=== PATIENT | male | born 1970 | race African-American/Black ===

== ENCOUNTER 2023-07-23 06:58 | Inpatient (IN) | payer MEDICAID ==
[~2023-07-23] VITALS: Ht 182.9 cm; Wt 145.3 kg
[2023-07-23] MEDS ORDERED: SODIUM CHLORIDE 0.9% 1,000 ML IV ONE (07:15)
[2023-07-23] MEDS ORDERED: ONDANSETRON HCL 4 MG/2 ML VIAL IV ONE (07:15)
[2023-07-23] MEDS ORDERED: cloNIDine HCL 0.1 MG TAB PO ONE (07:30)
[2023-07-23 07:41] LABS: Basophils # (auto) 0.1 10 ^3/uL (0-0.2); Basophils % (auto) 0.7 % (0.0-2.0); Eosinophils # (auto) 0.1 10 ^3/uL (0-0.8); Eosinophils % (auto) 0.6 % (0.0-7.0); Hematocrit 39.7 % (41.0-53.0); Hemoglobin 13.8 g/dL (13.5-17.5); Lymphocytes # (auto) 1.5 10 ^3/uL (0.4-5.4); Lymphocytes % (auto) 15.8 % (10.0-50.0); Mean Corpuscular Hemoglobin 32.6 pg (28.0-32.0); Mean Corpuscular Hgb Conc. 34.8 g/dL (32.0-36.0); Mean Corpuscular Volume 93.9 fL (80.0-100.0); Monocytes # (auto) 0.3 10 ^3/uL (0-1.3); Monocytes % (auto) 2.9 % (0.0-12.0); Neutrophils # (auto) 7.9 10 ^3/uL (1.6-8.6); Red Blood Cells 4.23 10^6/uL (4.5-5.90); Red Cell Distribution Width 15.9 % (11.8-14.3); White Blood Cell 9.8 10^3/uL (4.4-10.8)
[2023-07-23] MEDS ORDERED: MORPHINE SULFATE 4 MG/ML SYR/VIAL IV ONE (08:00)
[2023-07-23 08:29] LABS: Urine Bacteria NONE SEEN /hpf (None Seen); Urine Blood TRACE /uL (Negative); Urine Clarity Clear (Clear); Urine Color Yellow (Yellow); Urine Mucus FEW (None Seen); Urine Protein, UAD TRACE (Negative); Urine Specific Gravity 1.018 (1.001-1.035); Urine Urobilinogen Normal (Negative); Urine WBC 7 /hpf (0 - 3)
[2023-07-23 08:39] LABS: Amphetamine Screen, Urine Neg (NEGATIVE); Barbiturate Scree,Urine Neg (NEGATIVE); Benzodiazephine Screen, Urine Neg (NEGATIVE); Cannabinoid Screen, Urine Pos (NEGATIVE); Cocaine Screen, Urine Neg (NEGATIVE); Opiate Scree,Urine Neg (NEGATIVE); Phencyclidine Screen, Urine Neg (NEGATIVE)
[2023-07-23] MEDS ORDERED: LORazepam 2MG/ML-1ML VIAL IV ONE (09:00)
[2023-07-23 09:13] LABS: Chloride 105 mmol/L (98-107); Sodium 136 mmol/L (136-145)
[2023-07-23 09:16] LABS: Anion Gap 9.3 (5-15); Calcium 9.3 mg/dL (8.5-10.1); Carbon Dioxide 21.7 mmol/L (20-30)
[2023-07-23 09:21] LABS: Alkaline Phosphatase 47 U/L (46-116); Glucose 147 mg/dL (74-106)
[2023-07-23 09:23] LABS: Aspartate Aminotransferase 19 U/L (13-40); Bilirubin, Total 0.6 mg/dL (0.2-1.0); Total Protein 7.9 g/dL (5.7-8.2)
[2023-07-23 09:55] LABS: Alanine Aminotransferase 34 U/L (7-40); Albumin 4.6 g/dL (3.2-4.8); Lipase 33 U/L (12-53)
[2023-07-23 10:04] LABS: Potassium 3.6 mmol/L (3.5-5.1)
[2023-07-23 10:27] LABS: BUN/Creatinine Ratio 4.9 (10.0-20.0); Blood Urea Nitrogen 5 mg/dL (9-23)
[2023-07-23] MEDS ORDERED: MORPHINE SULFATE INJ 2 MG/ml SYRG IV PRN (11:15)
[2023-07-23] MEDS ORDERED: DOCUSATE SOD 100 MG CAP PO PRN (11:15)
[2023-07-23] MEDS ORDERED: ACETAMINOPHEN 325 MG TAB PO PRN (11:15)
[2023-07-23] MEDS ORDERED: METOCLOPRAMIDE HCL 5MG/ml INJ 2ml VIAL IV PRN (11:15)
[2023-07-23] MEDS ORDERED: DEXTROSE (50%) 50ML SYRG IV PRN (11:15)
[2023-07-23] MEDS ORDERED: NITROGLYCERIN 0.4 MG SL TAB SL PRN (11:15)
[2023-07-23] MEDS: ACCU-CHEK COMFORT CURVE STRIP VI SCH ×3 (13:05→22:32)
[2023-07-23] MEDS: InsuLIN REG 1unit/0.01ml Soln (100units/ml) SC SCH ×3 (13:05→22:32)
[2023-07-23] MEDS: SODIUM CHLOR 0.9% PF (SALINE LOCK) 10ML VIAL/SYR IV SCH ×2 (14:05→22:27)
[2023-07-23] MEDS: ONDANSETRON HCL 4 MG/2 ML VIAL IV PRN ×2 (14:39→23:48)
[2023-07-23] MEDS: hydrALAZINE HCL 20 MG/ML VL IV PRN ×2 (14:40→23:37)
[2023-07-23] MEDS: HYDROcodone-ACET 5/325MG TAB PO PRN (14:40)
[2023-07-23] MEDS: METOPROLOL SUCCINATE XL 50 MG TAB PO SCH (16:31)
[2023-07-23] MEDS: amLODIPine BESYLATE 5 MG TAB PO SCH (16:33)
[2023-07-23 19:30] VITALS: PULSE 88; RESP 20; O2SAT 93
[2023-07-23] MEDS ORDERED: FAMOTIDINE (10MG/ML) 2ML VL IV ONE (23:00)
[2023-07-23 23:21] VITALS: BP 153/93; PULSE 76; RESP 20; TEMP 98.6; O2SAT 95
[2023-07-24] MEDS ORDERED: METO-289 PO (00:05)
[2023-07-24] MEDS ORDERED: DAPA1TAB5 PO (00:05)
[2023-07-24] MEDS ORDERED: HYDR-4798 PO (00:09)
[2023-07-24 05:34] VITALS: BP 139/98; PULSE 82; RESP 19; TEMP 98.2; O2SAT 94
[2023-07-24] MEDS: HYDROcodone-ACET 5/325MG TAB PO PRN (05:37)
[2023-07-24] MEDS: SODIUM CHLOR 0.9% PF (SALINE LOCK) 10ML VIAL/SYR IV SCH ×3 (05:40→21:36)
[2023-07-24] MEDS: ACCU-CHEK COMFORT CURVE STRIP VI SCH ×4 (05:40→21:36)
[2023-07-24] MEDS: InsuLIN REG 1unit/0.01ml Soln (100units/ml) SC SCH ×4 (05:40→21:36)
[2023-07-24 05:51] LABS: Basophils # (auto) 0 10 ^3/uL (0-0.2); Basophils % (auto) 0.2 % (0.0-2.0); Eosinophils # (auto) 0 10 ^3/uL (0-0.8); Eosinophils % (auto) 0.2 % (0.0-7.0); Hematocrit 38.8 % (41.0-53.0); Lymphocytes # (auto) 3.3 10 ^3/uL (0.4-5.4); Mean Corpuscular Hemoglobin 31.6 pg (28.0-32.0); Mean Corpuscular Hgb Conc. 33.4 g/dL (32.0-36.0); Mean Corpuscular Volume 94.6 fL (80.0-100.0); Monocytes # (auto) 1.3 10 ^3/uL (0-1.3); Monocytes % (auto) 10.4 % (0.0-12.0); Neutrophils # (auto) 7.6 10 ^3/uL (1.6-8.6); Neutrophils % (auto) 62.2 % (37.0-80.0); Nucleated Red Blood Cells % 0.1 %; Red Blood Cells 4.09 10^6/uL (4.5-5.90); Red Cell Distribution Width 15.8 % (11.8-14.3); White Blood Cell 12.3 10^3/uL (4.4-10.8)
[2023-07-24 06:34] LABS: Alanine Aminotransferase 28 U/L (7-40); Albumin 4.3 g/dL (3.2-4.8); Alkaline Phosphatase 42 U/L (46-116); Anion Gap 9.1 (5-15); Aspartate Aminotransferase 16 U/L (13-40); Bilirubin, Total 0.7 mg/dL (0.2-1.0); Blood Urea Nitrogen 9 mg/dL (9-23); Calcium 9.3 mg/dL (8.5-10.1); Carbon Dioxide 23.9 mmol/L (20-30); Chloride 104 mmol/L (98-107); Glucose 122 mg/dL (74-106); Potassium 3.5 mmol/L (3.5-5.1); Sodium 137 mmol/L (136-145); Total Protein 5.9 g/dL (5.7-8.2)
[2023-07-24 08:00] VITALS: BP 164/91; PULSE 65; PULSE 74; RESP 18; RESP 19; TEMP 98.3; O2SAT 95; O2SAT 98
[2023-07-24] MEDS: METOPROLOL SUCCINATE XL 50 MG TAB PO SCH (09:02)
[2023-07-24] MEDS: amLODIPine BESYLATE 5 MG TAB PO SCH (09:03)
[2023-07-24 09:30] LABS: Hepatitis B Surface Antigen Negative (Negative)
[2023-07-24 09:51] LABS: Hepatitis C Antibody Negative (Negative)
[2023-07-24] MEDS ORDERED: cefTRIAXone 1GM/50ML D5W 50 ML IV ONE (11:45)
[2023-07-24] MEDS ORDERED: LISINOPRIL 5 MG TAB PO ONE (11:45)
[2023-07-24 12:31] LABS: INR 1.06 (0.9-1.15); Partial Thromboplastin Time 29.9 SEC (24.5-34.5); Prothrombin Time 11.1 sec (9.3-11.8)
[2023-07-24 12:58] VITALS: BP 137/86; PULSE 65; RESP 20; TEMP 97.9; O2SAT 97
[2023-07-24 17:00] VITALS: BP 103/97; PULSE 67; RESP 17; TEMP 98.1; O2SAT 9
[2023-07-24] MEDS ORDERED: PANTOPRAZOLE 40 MG TAB PO ONE (17:30)
[2023-07-24 21:16] LABS: COVID19 ANTIGEN SOFIA FIA NEGATIVE (NEGATIVE)
[2023-07-24 22:00] VITALS: BP 150/92; PULSE 71; RESP 19; TEMP 98.9; O2SAT 98
[2023-07-24 22:48] VITALS: BP 135/95
[2023-07-25] VITALS (7 sets, daily range): BP systolic 146–174; BP diastolic 85–119; PULSE 69–90; RESP 16–20; TEMP 97.5–98.7; O2SAT 90–98
[2023-07-25] MEDS: ONDANSETRON HCL 4 MG/2 ML VIAL IV PRN ×3 (06:13→18:49)
[2023-07-25] MEDS: ACCU-CHEK COMFORT CURVE STRIP VI SCH ×4 (06:13→21:46)
[2023-07-25] MEDS: InsuLIN REG 1unit/0.01ml Soln (100units/ml) SC SCH ×4 (06:13→21:47)
[2023-07-25] MEDS: SODIUM CHLOR 0.9% PF (SALINE LOCK) 10ML VIAL/SYR IV SCH ×3 (06:13→21:47)
[2023-07-25 06:15] LABS: Basophils # (auto) 0.1 10 ^3/uL (0-0.2); Basophils % (auto) 0.8 % (0.0-2.0); Eosinophils # (auto) 0.1 10 ^3/uL (0-0.8); Eosinophils % (auto) 1.3 % (0.0-7.0); Hematocrit 40.5 % (41.0-53.0); Hemoglobin 13.4 g/dL (13.5-17.5); Lymphocytes # (auto) 3.8 10 ^3/uL (0.4-5.4); Mean Corpuscular Hemoglobin 31.5 pg (28.0-32.0); Mean Corpuscular Hgb Conc. 33.1 g/dL (32.0-36.0); Monocytes # (auto) 1.1 10 ^3/uL (0-1.3); Monocytes % (auto) 10.5 % (0.0-12.0); Neutrophils # (auto) 5.4 10 ^3/uL (1.6-8.6); Neutrophils % (auto) 51.4 % (37.0-80.0); Nucleated Red Blood Cells % 0.1 %; Red Blood Cells 4.26 10^6/uL (4.5-5.90); White Blood Cell 10.4 10^3/uL (4.4-10.8)
[2023-07-25 06:19] LABS: Anion Gap 10.1 (5-15); Calcium 9.2 mg/dL (8.5-10.1); Carbon Dioxide 22.9 mmol/L (20-30); Chloride 103 mmol/L (98-107); Potassium 3.5 mmol/L (3.5-5.1); Sodium 136 mmol/L (136-145)
[2023-07-25 06:25] LABS: BUN/Creatinine Ratio 7.4 (10.0-20.0); Blood Urea Nitrogen 9 mg/dL (9-23); Glucose 110 mg/dL (74-106); Triglycerides 135 mg/dL (< 150)
[2023-07-25 06:26] LABS: Cholesterol 159 mg/dL (< 200); LDL Cholesterol 89 mg/dL (< 100)
[2023-07-25 06:27] LABS: HDL Cholesterol 44 mg/dL (40-59)
[2023-07-25] MEDS ORDERED: HYDROcodone-ACET 5/325MG TAB PO PRN (08:00)
[2023-07-25] MEDS ORDERED: ACETAMINOPHEN 325 MG TAB PO PRN (08:00)
[2023-07-25] MEDS ORDERED: METOCLOPRAMIDE HCL 5MG/ml INJ 2ml VIAL IV PRN ×2 (08:00→13:45)
[2023-07-25] MEDS: cefTRIAXone 1GM/50ML D5W 50 ML IV SCH (08:22)
[2023-07-25] MEDS: amLODIPine BESYLATE 5 MG TAB PO SCH (08:23)
[2023-07-25] MEDS: METOPROLOL SUCCINATE XL 50 MG TAB PO SCH (08:23)
[2023-07-25 09:02] LABS: Magnesium 2.1 mg/dL (1.6-2.6)
[2023-07-25] MEDS ORDERED: LISINOPRIL 5 MG TAB PO SCH ×2 (10:00)
[2023-07-25] MEDS ORDERED: PANTOPRAZOLE 40 MG TAB PO SCH (10:00)
[2023-07-25] MEDS: hydrALAZINE HCL 20 MG/ML VL IV PRN ×2 (11:09→21:55)
[2023-07-25] MEDS ORDERED: LISINOPRIL 10 MG TAB PO ONE (13:45)
[2023-07-25] MEDS ORDERED: ONDANSETRON HCL 4 MG/2 ML VIAL IV PRN (13:45)
[2023-07-25] MEDS: SODIUM CHLORIDE 0.9% 1,000 ML IV SCH (14:15)
[2023-07-25] MEDS ORDERED: PANTOPRAZOLE 40 MG/10 ML VIAL INJ IV ONE (14:15)
[2023-07-25 15:13] LABS: Basophils # (auto) 0.1 10 ^3/uL (0-0.2); Basophils % (auto) 0.5 % (0.0-2.0); Eosinophils # (auto) 0 10 ^3/uL (0-0.8); Eosinophils % (auto) 0.1 % (0.0-7.0); Hematocrit 41.6 % (41.0-53.0); Hemoglobin 14.1 g/dL (13.5-17.5); Lymphocytes # (auto) 1.9 10 ^3/uL (0.4-5.4); Lymphocytes % (auto) 17.6 % (10.0-50.0); Mean Corpuscular Hemoglobin 31.9 pg (28.0-32.0); Mean Corpuscular Hgb Conc. 33.9 g/dL (32.0-36.0); Monocytes # (auto) 0.6 10 ^3/uL (0-1.3); Monocytes % (auto) 5.4 % (0.0-12.0); Neutrophils # (auto) 8.3 10 ^3/uL (1.6-8.6); Neutrophils % (auto) 76.4 % (37.0-80.0); Nucleated Red Blood Cells % 0.1 %; Red Blood Cells 4.42 10^6/uL (4.5-5.90); Red Cell Distribution Width 15.3 % (11.8-14.3); White Blood Cell 10.8 10^3/uL (4.4-10.8)
[2023-07-25] MEDS: HYDROmorphone HCL 2 MG/ML VL/or syr IV PRN ×2 (15:20→18:48)
[2023-07-25 15:26] LABS: Alanine Aminotransferase 31 U/L (7-40); Albumin 4.5 g/dL (3.2-4.8); Alkaline Phosphatase 50 U/L (46-116); Anion Gap 9.9 (5-15); Aspartate Aminotransferase 11 U/L (13-40); BUN/Creatinine Ratio 8.8 (10.0-20.0); Bilirubin, Total 0.6 mg/dL (0.2-1.0); Blood Urea Nitrogen 10 mg/dL (9-23); Calcium 9.4 mg/dL (8.7-10.4); Carbon Dioxide 23.1 mmol/L (20-30); Chloride 102 mmol/L (98-107); Glucose 127 mg/dL (74-106); Lipase 23 U/L (12-53); Magnesium 2.2 mg/dL (1.6-2.6); Potassium 3.6 mmol/L (3.5-5.1); Sodium 135 mmol/L (136-145); Total Protein 7.7 g/dL (5.7-8.2)
[2023-07-26] MEDS: SODIUM CHLORIDE 0.9% 1,000 ML IV SCH ×2 (00:15→10:12)
[2023-07-26] MEDS: HYDROmorphone HCL 2 MG/ML VL/or syr IV PRN (00:20)
[2023-07-26] MEDS: ONDANSETRON HCL 4 MG/2 ML VIAL IV PRN (00:21)
[2023-07-26 05:00] VITALS: BP 149/98; PULSE 92; RESP 16; TEMP 98.2; O2SAT 93
[2023-07-26] MEDS: hydrALAZINE HCL 20 MG/ML VL IV PRN ×2 (05:11→15:22)
[2023-07-26 05:16] LABS: Basophils # (auto) 0.1 10 ^3/uL (0-0.2); Basophils % (auto) 0.7 % (0.0-2.0); Eosinophils # (auto) 0 10 ^3/uL (0-0.8); Eosinophils % (auto) 0.4 % (0.0-7.0); Hematocrit 40.2 % (41.0-53.0); Hemoglobin 13.3 g/dL (13.5-17.5); Lymphocytes # (auto) 3.3 10 ^3/uL (0.4-5.4); Lymphocytes % (auto) 25.8 % (10.0-50.0); Mean Corpuscular Hemoglobin 31.4 pg (28.0-32.0); Mean Corpuscular Hgb Conc. 33.1 g/dL (32.0-36.0); Mean Corpuscular Volume 94.8 fL (80.0-100.0); Monocytes # (auto) 1.5 10 ^3/uL (0-1.3); Monocytes % (auto) 11.5 % (0.0-12.0); Neutrophils % (auto) 61.6 % (37.0-80.0); Nucleated Red Blood Cells % 0.1 %; Red Blood Cells 4.24 10^6/uL (4.5-5.90); Red Cell Distribution Width 15.5 % (11.8-14.3)
[2023-07-26 05:43] LABS: Alanine Aminotransferase 23 U/L (7-40); Alkaline Phosphatase 45 U/L (46-116); Anion Gap 7.8 (5-15); Blood Urea Nitrogen 8 mg/dL (9-23); Calcium 9.2 mg/dL (8.7-10.4); Carbon Dioxide 24.2 mmol/L (20-30); Chloride 104 mmol/L (98-107); Glucose 115 mg/dL (74-106); Lipase 33 U/L (12-53); Magnesium 2.2 mg/dL (1.6-2.6); Potassium 3.2 mmol/L (3.5-5.1); Sodium 136 mmol/L (136-145)
[2023-07-26 05:44] LABS: Albumin 4.2 g/dL (3.2-4.8); Aspartate Aminotransferase < 8 U/L (13-40); Bilirubin, Total 0.7 mg/dL (0.2-1.0); Total Protein 7.2 g/dL (5.7-8.2)
[2023-07-26] MEDS: ACCU-CHEK COMFORT CURVE STRIP VI SCH ×2 (06:54→11:30)
[2023-07-26] MEDS: SODIUM CHLOR 0.9% PF (SALINE LOCK) 10ML VIAL/SYR IV SCH ×2 (06:55→13:40)
[2023-07-26] MEDS: InsuLIN REG 1unit/0.01ml Soln (100units/ml) SC SCH ×2 (06:55→11:30)
[2023-07-26] MEDS ORDERED: IOHEXOL 300 MG/ML 100ML BOTTLE IJ ONE (07:31)
[2023-07-26 08:00] VITALS: PULSE 90; RESP 17; O2SAT 98
[2023-07-26 08:31] VITALS: BP 151/92; PULSE 90; RESP 17; TEMP 98.2; O2SAT 98
[2023-07-26] MEDS: cefTRIAXone 1GM/50ML D5W 50 ML IV SCH (09:07)
[2023-07-26] MEDS ORDERED: LISINOPRIL 20 MG TAB PO SCH (10:00)
[2023-07-26] MEDS ORDERED: PANTOPRAZOLE 40 MG/10 ML VIAL INJ IV SCH (10:00)
[2023-07-26] MEDS: METOPROLOL SUCCINATE XL 50 MG TAB PO SCH (10:10)
[2023-07-26] MEDS: amLODIPine BESYLATE 5 MG TAB PO SCH (10:11)
[2023-07-26] MEDS ORDERED: POTASSIUM EFFERVESENT TAB 25 MEQ PO ONE (10:15)
[2023-07-26 12:30] VITALS: BP 157/92; PULSE 86; RESP 18; TEMP 98.4; O2SAT 100
[2023-07-26] MEDS ORDERED: NIFEdipine ER 30 MG TAB PO ONE (13:00)
[2023-07-26 15:05] VITALS: BP 149/90; PULSE 86; RESP 18; TEMP 97.2; O2SAT 100
[2023-07-26] MEDS ORDERED: LISI20TA56 PO (16:09)
[2023-07-26] MEDS ORDERED: NIFE1TAB31 PO (16:09)
[2023-07-26 16:32] VITALS: BP 151/91; PULSE 64; RESP 18; TEMP 98.2; O2SAT 100
[2023-07-27] MEDS ORDERED: NIFEdipine ER 30 MG TAB PO SCH (10:00)
== END 2023-07-26 17:00 | disposition home or self-care (01) | DRG 199 ==
LOC: ER 06:58 → TELE 11:09 → TELE-WESTW 22:47 → WEST WING 07-24 18:31
PROVIDERS: ADMIT Internal Medicine Geriatric Medicine; ATTEND Student in an Organized Health Care Education/Training Program
DX: I16.9 Hypertensive crisis, unspecified (principal); E11.9 Type 2 diabetes mellitus without complications; N39.0 Urinary tract infection, site not specified; I10 Essential (primary) hypertension; E66.01 Morbid (severe) obesity due to excess calories; Z68.41 Body mass index [BMI] 40.0-44.9, adult; T50.905A Adverse effect of unspecified drugs, medicaments and biological substances, initial encounter
CPT/HCPCS: 36415; 74176; 74177; 80048; 80053; 80061; 80307; 81001; 82150; 82962; 83036; 83690; 83735; 84443; 84484; 85025; 85610; 85730; 86803; 87086; 87340; 87426; 93005; 96374; 96375; C9113; G0378; J0696; J2405; J3490